=== PATIENT | female | born 1985 | race American Indian/Alaskan Native ===

== ENCOUNTER 2017-08-18 10:40 | Emergency (ER) | payer MEDICAID, OTHER ==
[2017-08-18 10:40] VITALS: BMI 27.3
[2017-08-18 10:53] VITALS: TEMP 98.8
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
[2017-08-18] MEDS ORDERED: Sodium Chloride 0.9% 1,000 ML IV STA (11:26)
[2017-08-18 12:10] LABS: ALB/GLOB RATIO 1.2 (1.1-1.8); ALKALINE PHOSPHATASE 59 U/L (38-126); ALT/SGPT 24 U/L (7-56); AST/SGOT 20 U/L (14-36); BILIRUBIN,TOTAL 0.3 mg/dL (0.2-1.3); BLOOD UREA NITROGEN 10 mg/dL (7-21); CALCIUM 9.6 mg/dL (8.4-10.5); CARBON DIOXIDE 27 mmol/L (21-33); CHLORIDE 102 mmol/L (98-107); GFR AFRICAN-AMERICAN > 60; GLUCOSE,RANDOM 93 mg/dL (70-110); POTASSIUM 3.8 mmol/L (3.6-5.0); SODIUM 139 mmol/L (132-148); TOTAL PROTEIN 7.8 g/dL (5.8-8.3)
[2017-08-18] MEDS ORDERED: Iohexol 350 MG/100 ML VIAL ONE (12:39)
--- NOTE | 2017-08-18 13:01 | RAD ---
HISTORY: cough COMPARISON: No prior. TECHNIQUE: Chest PA and lateral FINDINGS: LUNGS: The lungs are well inflated and clear. PLEURA: No significant pleural effusion identified. No pneumothorax apparent. CARDIOVASCULAR: Normal. OSSEOUS STRUCTURES: No significant abnormalities. VISUALIZED UPPER ABDOMEN: Normal. OTHER FINDINGS: None. IMPRESSION: No active pulmonary disease.
[2017-08-18 13:11] LABS: BASO # 0.02 K/mm3 (0.0-2.0); BASO % 0.1 % (0.0-3.0); EOS % 0.1 % (1.5-5.0); GRAN # 11.4 (1.4-6.5); GRAN % 82.9 % (50.0-68.0); HEMATOCRIT 35.9 % (36.0-48.0); LYMPH # 1.5 (1.2-3.4); LYMPH % 11.1 % (22.0-35.0); MEAN CELL VOLUME 68.8 fl (80.0-105.0); MEAN CORPUSCULAR HEMOGLOBIN 22.8 pg (25.0-35.0); MEAN CORPUSCULAR HGB CONC 33.1 g/dl (31.0-37.0); MEAN PLATELET VOLUME 9.9 fl (7.0-11.0); MONO # 0.8 (0.1-0.6); MONO % 5.8 % (1.0-6.0); RED CELL DISTRIBUTION WIDTH 16.3 % (11.5-14.5); WHITE BLOOD COUNT 13.8 10^3/ul (4.5-11.0)
[2017-08-18 13:26] VITALS: BP 153/84; PULSE 93; RESP 16; O2SAT 98
--- NOTE | 2017-08-18 13:41 | CT ---
PROCEDURE: CT Abdomen and Pelvis with contrast HISTORY: swelling to R flank COMPARISON: None. TECHNIQUE: Contrast dose: 100 cc of Omnipaque 300 Radiation dose: Total exam DLP = 652 mGy-cm. This CT exam was performed using one or more of the following dose reduction techniques: Automated exposure control, adjustment of the mA and/or kV according to patient size, and/or use of iterative reconstruction technique. FINDINGS: LOWER THORAX: Unremarkable. LIVER: Unremarkable. No gross lesion or ductal dilatation. GALLBLADDER AND BILE DUCTS: Unremarkable. PANCREAS: Unremarkable. No gross lesion or ductal dilatation. SPLEEN: Unremarkable. ADRENALS: Unremarkable. No mass. KIDNEYS AND URETERS: Unremarkable. No hydronephrosis. No solid mass. VASCULATURE: Unremarkable. No aortic aneurysm. BOWEL: Unremarkable. No obstruction. No gross mural thickening. APPENDIX: Normal appendix. PERITONEUM: Unremarkable. No free fluid. No free air. LYMPH NODES: Unremarkable. No enlarged lymph nodes. BLADDER: Unremarkable. REPRODUCTIVE: Intrauterine device in place. BONES: No acute fracture. OTHER FINDINGS: Extensive circumferential fat infiltration of the subcutaneous fat. Cystic mass in the left breast measuring 5.1 centimeters. Recommend correlation with ultrasound. IMPRESSION: Extensive circumferential infiltration of the subcutaneous fat. Correlate for inflammatory process. No evidence of urinary tract abnormality. 5.1 centimeter cystic lesion in the left breast which correlation with breast ultrasound is recommended.
== END 2017-08-18 14:08 | disposition home or self-care (01) ==
LOC: ED 10:40
DX: B34.9 Viral infection, unspecified (principal); N60.02 Solitary cyst of left breast; L03.312 Cellulitis of back [any part except buttock and flank]
CPT/HCPCS: 71020; 74177; 80053; 85025; 87040; 87149; 87205; 87804; 96374; 99284; J1885; J7040; Q9967

== ENCOUNTER 2017-08-19 11:48 | Inpatient (IN) | payer OTHER ==
--- NOTE | 2017-08-19 12:14 | ED PDOC ---
Arrival/HPI - General Chief Complaint: Abnormal Skin Integrity Time Seen by Provider: 08/19/17 11:58 Historian: Patient - History of Present Illness Narrative History of Present Illness (Text): The patient is a 32yo female, presents to the ED for re-evaluation after receiving a call back regarding a positive blood culture. Patient was seen in this facility yesterday, for evaluation of fever, chills, generalized bodyaches and today she states the symptoms are still present. Patient reports she had a fever of 100.3 yesterday which resolved after she took some Tylenol. additionally, patient reports she noticed a new onset redness to her upper abdomen as well as her right lower back, present since yesterday. She denies any injury to the sites and denies any pain. Patient currently offers no other medical complaints. Time/Duration: < week (4 days) Symptom Onset: Gradual Symptom Course: Unchanged Past Medical History - Provider Review Nursing Documentation Reviewed: Yes - Infectious Disease Hx of Infectious Diseases: None - Reproductive Menopause: No - Past Medical History Past Medical History: No Previous - Psychiatric Hx Psychophysiologic Disorder: Yes Hx Anxiety: Yes Hx Substance Use: No - Past Surgical History Past Surgical History: No Previous - Surgical History Other/Comment: Sena Ram. Breast Augmentation, liposuction March - Anesthesia Hx Anesthesia: No - Suicidal Assessment Feels Threatened In Home Enviroment: No Family/Social History - Physician Review Nursing Documentation Reviewed: Yes Family/Social History: No Known Family HX, Unknown Family HX Smoking Status: Never Smoked Hx Alcohol Use: Yes Hx Substance Use: No Hx Substance Use Treatment: No Allergies/Home Meds Allergies/Adverse Reactions: Allergies No Known Allergies Allergy (Verified 08/19/17 11:58) Review of Systems - Review of Systems Constitutional: Fevers, Other (generalized weakness) Eyes: Normal ENT: Normal Respiratory: Cough Cardiovascular: Normal. absent: Chest Pain Gastrointestinal: Normal. absent: Abdominal Pain Skin: Other (redness to upper abdomen, right lower back. ) Physical Exam - Physical Exam Narrative Physical Exam (Text): Constitutional: No acute distress. Head: Normocephalic. Atraumatic. Eyes: PERRL. ENT: Moist mucous membranes. Neck: Supple. Cardiovascular: Regular rate. Chest: No tenderness. Respiratory: Clear to auscultation bilaterally. GI: Soft. Nontender. Nondistended. Back: No CVA tenderness. Musculoskeletal: No tenderness or swelling of extremities. Skin: Ulceration to right flank, no discharge, pus or erythema noted. Epigastric abdominal wall with a 5cm x 4cm area of blanching erythema, no tenderness or induration noted. Similar erythema noted along right flank to right lower back. Neurologic: Alert, no focal deficit. Vital Signs Temp Pulse Resp BP Pulse Ox 08/19/17 13:39 89 18 142/79 98 08/19/17 12:04 99.7 F H 99 H 18 144/88 98 08/19/17 11:52 99.7 F H 99 H 18 144/88 100 Medical Decision Making ED Course and Treatment: -- Labs -- IV Fluids -- Vancomycin 1 mg IVPB -- Zosyn 4.[address] from yesterday shows inflammatory changes of abdominal wall treated as cellulitis, no intraabdominal findings. WBC slightly elevated since yesterday. Dr. Becerra accepts patient to hospitalist service. - Lab Interpretations Lab Results: 08/19/17 12:45 08/19/17 12:45 Lab Results 08/19/17 12:45: Sodium 138, Chloride 100, Potassium 3.1 L, Carbon Dioxide 27, Anion Gap 14, BUN 9, Creatinine 0.7, Est GFR ( Amer) > 60, Est GFR (Non- Af Amer) > 60, Random Glucose 91, Calcium 9.5, Total Bilirubin 0.4, AST 18, ALT 25, Alkaline Phosphatase 68, Total Protein 7.9, Albumin 4.3, Globulin 3.6, Albumin/Globulin Ratio 1.2 08/19/17 12:45: pO2 41, VBG pH 7.37, VBG pCO2 49.0, VBG HCO3 28.3 H, VBG Total CO2 29.8 H, VBG O2 Sat (Calc) 80.2 H, VBG Base Excess 2.2 H, VBG Potassium 3.1 L , Sodium 135.0, Chloride 102.0, Glucose 91, Lactate 1.3, FiO2 21.0, Venous Blood Potassium 3.1 L 08/19/17 12:45: Urine Color Yellow, Urine Appearance Turbid, Urine pH 6.0, Ur Specific [place] 1.020, Urine Protein 100 H, Urine Glucose (UA) Negative, Urine Ketones Trace H, Urine Blood Small H, Urine Nitrate Negative, Urine Bilirubin Small H, Urine Urobilinogen 1.0 H, Ur Leukocyte Esterase Negative, Urine RBC 0 - 2, Urine WBC 0 - 2, Ur Epithelial Cells 6 - 8, Urine Bacteria Few 08/19/17 12:45: WBC 14.8 H, RBC 5.19, Hgb 11.9 L, Hct 35.2 L, MCV 67.8 L, MCH 22.9 L, MCHC 33.8, RDW 16.3 H, Plt Count 256, MPV 9.3, Gran % 88.9 H, Lymph % ( Auto) 7.4 L, [place] % (Auto) 3.5, Eos % (Auto) 0.1 L, Baso % (Auto) 0.1, Gran # 13.14 H, Lymph # 1.1 L, [place] # 0.5, Eos # 0.0, Baso # 0.02 - EKG Interpretation EKG Interpretation (Text): NSR Rate: [address]/T wave changes Interpreted by ED Physician: Yes Type: 12 lead EKG - Medication Orders Current Medication Orders: Discontinued Medications Acetaminophen (Tylenol 325mg Tab) 650 mg PO STAT STA Stop: 08/19/17 13:19 Last Admin: 08/19/17 13:24 Dose: 650 mg MAR Pain/Vitals Document 08/19/17 13:24 NATHANAEL (Rec: 08/19/17 13:24 NATHANAEL [id number]) Presence of Pain Presence of Pain Yes Location Left, Right or Bilateral Right Pain Location Body Site Back Intensity 8 Scale Used Numeric Acetaminophen (Tylenol 325mg Tab) Confirm Administered Dose 650 mg .ROUTE .STK- MED ONE Stop: 08/19/17 13:21 Last Admin: 08/19/17 13:24 Dose: Sodium Chloride (Sodium Chloride 0.9%) 1,000 mls @ 999 mls/hr IV .Q1H1M STA Stop: 08/19/17 13:15 Last Admin: 08/19/17 12:46 Dose: 999 mls/hr eMAR Start Stop Document 08/19/17 12:46 NATHANAEL (Rec: 08/19/17 12:53 NATHANAEL [id number]) Intravenous Solution Start Date 08/19/17 Start Time 12:46 End Date 08/19/17 End time 13:46 Total Infusion Time 60 Vancomycin HCl (Vancomycin 1gm) 1 gm in 250 mls @ 167 mls/hr IVPB STAT STA PRN Reason: Protocol Stop: 08/19/17 13:47 Last Admin: 08/19/17 13:21 Dose: 167 mls/hr eMAR Start Stop Document 08/19/17 13:21 NATHANAEL (Rec: 08/19/17 13:23 NATHANAEL [id number]) Intravenous Solution Start Date 08/19/17 Start Time 13:23 End Date 08/19/17 End time 14:53 Total Infusion Time 90 Piperacillin Sod/Tazobactam Sod (Zosyn 4.5 Gm In Ns 100ml) 4.5 gm in 100 mls @ 200 mls/hr IVPB STAT STA PRN Reason: Protocol Stop: 08/19/17 12:47 Last Admin: 08/19/17 12:45 Dose: 200 mls/hr eMAR Start Stop Document 08/19/17 12:45 NATHANAEL (Rec: 08/19/17 12:53 NATHANAEL [id number]) Intravenous Solution Start Date 08/19/17 Start Time 12:46 End Date 08/19/17 End time 13:16 Total Infusion Time 30 - Scribe Statement The provider has reviewed the documentation as recorded by the Nel Rosado Provider Attestation: All medical record entries made by the Nel were at my direction and personally dictated by me. I have reviewed the chart and agree that the record accurately reflects my personal performance of the history, physical exam, medical decision making, and the department course for this patient. I have also personally directed, reviewed, and agree with the discharge instructions and disposition. Disposition/Present on Arrival - Present on Arrival Any Indicators Present on Arrival: No History of DVT/PE: No History of Uncontrolled Diabetes: No Urinary Catheter: No History of Decub. Ulcer: No History Surgical Site Infection Following: None - Disposition Have Diagnosis and Disposition been Completed?: Yes Diagnosis: Bacteremia, Cellulitis Disposition: HOME/ ROUTINE Disposition Time: 13:16 Patient Plan: Admission Condition: GUARDED Discharge Instructions (ExitCare): Cellulitis (ED) Referrals: Corin Gordon, [Primary Care Provider] - Follow up with primary Forms: [facility] [employer] ([place])
[2017-08-19] MEDS ORDERED: Sodium Chloride 0.9% 1,000 ML IV STA (12:15)
[2017-08-19] MEDS ORDERED: Vancomycin 1gm in NS 250ml 1 GM/250 ML BAG IVPB STA (12:18)
[2017-08-19] MEDS ORDERED: Piperacill/Tazo 4.5gm in NS 4.5 GM/100 ML BAG IVPB STA (12:18)
[2017-08-19 13:11] LABS: BASO # 0.02 K/mm3 (0.0-2.0); BASO % 0.1 % (0.0-3.0); EOS % 0.1 % (1.5-5.0); GRAN # 13.14 (1.4-6.5); GRAN % 88.9 % (50.0-68.0); HEMATOCRIT 35.2 % (36.0-48.0); LYMPH # 1.1 (1.2-3.4); LYMPH % 7.4 % (22.0-35.0); MEAN CELL VOLUME 67.8 fl (80.0-105.0); MEAN CORPUSCULAR HEMOGLOBIN 22.9 pg (25.0-35.0); MEAN CORPUSCULAR HGB CONC 33.8 g/dl (31.0-37.0); MEAN PLATELET VOLUME 9.3 fl (7.0-11.0); MONO # 0.5 (0.1-0.6); MONO % 3.5 % (1.0-6.0); RED CELL DISTRIBUTION WIDTH 16.3 % (11.5-14.5); URINE BILIRUBIN SMALL (NEGATIVE); URINE BLOOD SMALL (NEGATIVE); URINE GLUCOSE (UA) NEGATIVE (NEGATIVE); URINE KETONE TRACE mg/dL (NEGATIVE); URINE LEUKOCYTE ESTERASE NEGATIVE Leu/uL (NEGATIVE); URINE PROTEIN 100 mg/dL (<30 mg/dL); WHITE BLOOD COUNT 14.8 10^3/ul (4.5-11.0)
[2017-08-19 13:12] LABS: URINE APPEARANCE TURBID (CLEAR); URINE COLOR YELLOW (YELLOW); VENOUS BLOOD GAS BASE EXCESS 2.2 mmol/L (0.0-2.0); VENOUS BLOOD PH 7.37 (7.32-7.43)
[2017-08-19 13:13] LABS: URINE BACTERIA FEW (NEG); URINE RBC 0 - 2 /hpf (0-2); URINE WBC 0 - 2 /hpf (0-6)
[2017-08-19 13:21] LABS: ALB/GLOB RATIO 1.2 (1.1-1.8); ALKALINE PHOSPHATASE 68 U/L (38-126); ALT/SGPT 25 U/L (7-56); AST/SGOT 18 U/L (14-36); BILIRUBIN,TOTAL 0.4 mg/dL (0.2-1.3); BLOOD UREA NITROGEN 9 mg/dL (7-21); CALCIUM 9.5 mg/dL (8.4-10.5); CARBON DIOXIDE 27 mmol/L (21-33); CHLORIDE 100 mmol/L (98-107); GFR AFRICAN-AMERICAN > 60; GLUCOSE,RANDOM 91 mg/dL (70-110); POTASSIUM 3.1 mmol/L (3.6-5.0); SODIUM 138 mmol/L (132-148); TOTAL PROTEIN 7.9 g/dL (5.8-8.3)
[2017-08-19] MEDS ORDERED: Vancomycin 1gm in NS 250ml 1 GM/250 ML BAG IVPB SCH (15:45)
[2017-08-19 16:03] VITALS: RESP 20
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
[2017-08-19] MEDS ORDERED: Bacitracin Ointment 30 GM TUBE TOP SCH ×2 (18:00→23:00)
[2017-08-19 18:14] VITALS: BMI 28.6
[2017-08-19] MEDS: Ampicillin/Sulbactam 3 GM in Sodium Chloride 0.9% 100 ML IVPB SCH ×2 (18:29→23:41)
--- NOTE | 2017-08-19 22:44 | CARD ---
APPROVED REPORT EKG Measurement Heart [id number] <Conclusion> Normal sinus rhythm Nonspecific T wave abnormality Abnormal ECG
[2017-08-20] MEDS: Ampicillin/Sulbactam 3 GM in Sodium Chloride 0.9% 100 ML IVPB SCH ×2 (05:50→12:59)
[2017-08-20] MEDS ORDERED: Vancomycin 1gm in NS 250ml 1 GM/250 ML BAG IVPB SCH (06:00)
[2017-08-20 07:01] LABS: BASO # 0.01 K/mm3 (0.0-2.0); BASO % 0.1 % (0.0-3.0); EOS # 0.1 (0.0-0.7); EOS % 1.1 % (1.5-5.0); GRAN # 7.02 (1.4-6.5); GRAN % 74.6 % (50.0-68.0); HEMATOCRIT 32.1 % (36.0-48.0); LYMPH # 1.6 (1.2-3.4); LYMPH % 16.8 % (22.0-35.0); MEAN CELL VOLUME 67.9 fl (80.0-105.0); MEAN CORPUSCULAR HEMOGLOBIN 22.4 pg (25.0-35.0); MEAN PLATELET VOLUME 9.4 fl (7.0-11.0); MONO # 0.7 (0.1-0.6); MONO % 7.4 % (1.0-6.0); RED CELL DISTRIBUTION WIDTH 16.3 % (11.5-14.5); WHITE BLOOD COUNT 9.4 10^3/ul (4.5-11.0)
[2017-08-20 07:07] LABS: ALB/GLOB RATIO 1.1 (1.1-1.8); ALKALINE PHOSPHATASE 55 U/L (38-126); ALT/SGPT 22 U/L (7-56); AST/SGOT 18 U/L (14-36); BILIRUBIN,TOTAL 0.2 mg/dL (0.2-1.3); BLOOD UREA NITROGEN 9 mg/dL (7-21); CALCIUM 8.8 mg/dL (8.4-10.5); CARBON DIOXIDE 28 mmol/L (21-33); CHLORIDE 102 mmol/L (98-107); GFR AFRICAN-AMERICAN > 60; GLUCOSE,RANDOM 88 mg/dL (70-110); POTASSIUM 3.3 mmol/L (3.6-5.0); SODIUM 139 mmol/L (132-148); TOTAL PROTEIN 6.8 g/dL (5.8-8.3)
[2017-08-20 08:02] VITALS: BP 144/93; PULSE 77; TEMP 99.1; O2SAT 100
[2017-08-20] MEDS ORDERED: Enoxaparin 40 mg Syringe SC SCH (10:00)
[2017-08-20] MEDS ORDERED: Potassium Chloride 40 mEq/30 ml LIQ UD PO ONE (13:32)
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
== END 2017-08-20 19:54 | disposition home or self-care (01) | DRG 278 ==
LOC: ED 11:48 → ERH 14:14 → 5RNO 15:35
PROVIDERS: ADMIT Internal Medicine; ATTEND Internal Medicine
DX: L03.311 Cellulitis of abdominal wall (principal); F12.10 Cannabis abuse, uncomplicated; N60.12 Diffuse cystic mastopathy of left breast; E66.9 Obesity, unspecified; Z68.28 Body mass index [BMI] 28.0-28.9, adult; Z83.3 Family history of diabetes mellitus; Z82.49 Family history of ischemic heart disease and other diseases of the circulatory system